=== PATIENT | female | born 1980 | race American Indian/Alaskan Native ===

== ENCOUNTER 2016-10-29 10:14 | Emergency (ER) | payer SELFPAY ==
[2016-10-29 12:17] VITALS: BP 140/81
--- NOTE | 2016-10-29 14:24 | Emergency Department Report ---
- General Chief complaint: Pain General Stated complaint: BOIL LOWER BACK Time Seen by Provider: 10/29/16 14:10 Source: patient Mode of arrival: Ambulatory Limitations: No Limitations - Related Data Previous Rx's Medication Instructions Recorded Last Taken Type ALBUTEROL NEB's [Proventil 0.083% 2.5 mg IH TID PRN #1 box 04/22/14 10/14/15 Rx NEBS] Metoclopramide [Reglan] 10 mg PO AC #90 tablet 10/16/15 10/20/15 Rx Ondansetron [Zofran ODT TAB] 8 mg PO Q8HR #20 tab.rapdis 10/23/15 1 Day Ago Rx 8 Metoclopramide [Reglan] 10 mg PO TID #90 tab 10/25/15 Unknown Rx Ondansetron [Zofran ODT TAB] 8 mg PO Q8HR #30 tab.rapdis 10/25/15 Unknown Rx ALBUTEROL Inhaler [ProAir HFA 2 puff IH QID PRN #1 dispenser 05/31/16 Unknown Rx Inhaler] Cetirizine HCl [ZyrTEC] 10 mg PO DAILY #20 capsule 05/31/16 Unknown Rx predniSONE [Deltasone] 20 mg PO QDAY #20 tablet 05/31/16 Unknown Rx Cephalexin [Keflex] 500 mg PO Q12HR #40 cap 10/29/16 Unknown Rx Sulfamethoxazole/Trimethoprim 1 each PO BID #20 tablet 10/29/16 Unknown Rx [Bactrim DS TAB] Allergies Allergy/AdvReac Type Severity Reaction Status Date / Time ibuprofen [From Motrin] Allergy Swelling Verified 10/24/15 19:25 prochlorperazine edisylate Allergy Swelling Verified 10/15/15 12:44 [From Compazine] prochlorperazine maleate Allergy Swelling Verified 10/15/15 12:44 [From Compazine] Abscess Boil HPI - HPI Chief Complaint: Pain General Stated Complaint: BOIL LOWER BACK Time Seen by Provider: 10/29/16 14:10 Home Medications: Previous Rx's Medication Instructions Recorded Last Taken Type ALBUTEROL NEB's [Proventil 0.083% 2.5 mg IH TID PRN #1 box 04/22/14 10/14/15 Rx NEBS] Metoclopramide [Reglan] 10 mg PO AC #90 tablet 10/16/15 10/20/15 Rx Ondansetron [Zofran ODT TAB] 8 mg PO Q8HR #20 tab.rapdis 10/23/15 1 Day Ago Rx 8 Metoclopramide [Reglan] 10 mg PO TID #90 tab 10/25/15 Unknown Rx Ondansetron [Zofran ODT TAB] 8 mg PO Q8HR #30 tab.rapdis 10/25/15 Unknown Rx ALBUTEROL Inhaler [ProAir HFA 2 puff IH QID PRN #1 dispenser 05/31/16 Unknown Rx Inhaler] Cetirizine HCl [ZyrTEC] 10 mg PO DAILY #20 capsule 05/31/16 Unknown Rx predniSONE [Deltasone] 20 mg PO QDAY #20 tablet 05/31/16 Unknown Rx Cephalexin [Keflex] 500 mg PO Q12HR #40 cap 10/29/16 Unknown Rx Sulfamethoxazole/Trimethoprim 1 each PO BID #20 tablet 10/29/16 Unknown Rx [Bactrim DS TAB] Allergies/Adverse Reactions: Allergies Allergy/AdvReac Type Severity Reaction Status Date / Time ibuprofen [From Motrin] Allergy Swelling Verified 10/24/15 19:25 prochlorperazine edisylate Allergy Swelling Verified 10/15/15 12:44 [From Compazine] prochlorperazine maleate Allergy Swelling Verified 10/15/15 12:44 [From Compazine] ED Review of Systems ROS: Stated complaint: BOIL LOWER BACK Other details as noted in HPI ED Past Medical Hx - Past Medical History Hx Hypertension: No Hx Heart Attack/AMI: No Hx Congestive Heart Failure: No Hx Diabetes: No Hx Deep Vein Thrombosis: No Hx Pulmonary Embolism: No Hx Liver Disease: No Hx Renal Disease: No Hx Sickle Cell Disease: No Hx Arthritis: No Hx Headaches / Migraines: No Hx Seizures: No Hx Kidney Stones: No Hx Asthma: Yes Hx COPD: No Hx Tuberculosis: No Hx Dementia: No Hx HIV: No Additional medical history: - Surgical History Past Surgical History?: No Hx Coronary Stent: No Hx Open Heart Surgery: No Hx Pacemaker: No Hx Internal Defibrillator: No Hx Cholecystectomy: No Hx Appendectomy: No Hx Breast Surgery: No Additional Surgical History: D&C - Social History Smoking Status: Never Smoker - Medications Home Medications: Home Medications Medication Instructions Recorded Confirmed Last Taken Type ALBUTEROL NEB's [Proventil 0.083% 2.5 mg IH TID PRN #1 box 04/22/14 10/24/15 Rx NEBS] Metoclopramide [Reglan] 10 mg PO AC #90 tablet 10/16/15 10/24/15 10/20/15 Rx Ondansetron [Zofran ODT TAB] 8 mg PO Q8HR #20 tab.rapdis 10/23/15 10/24/15 1 Day Ago Rx 8 Metoclopramide [Reglan] 10 mg PO TID #90 tab 10/25/15 Unknown Rx Ondansetron [Zofran ODT TAB] 8 mg PO Q8HR #30 tab.rapdis 10/25/15 Unknown Rx ALBUTEROL Inhaler [ProAir HFA 2 puff IH QID PRN #1 dispenser 05/31/16 Unknown Rx Inhaler] Cetirizine HCl [ZyrTEC] 10 mg PO DAILY #20 capsule 05/31/16 Unknown Rx predniSONE [Deltasone] 20 mg PO QDAY #20 tablet 05/31/16 Unknown Rx Cephalexin [Keflex] 500 mg PO Q12HR #40 cap 10/29/16 Unknown Rx Sulfamethoxazole/Trimethoprim 1 each PO BID #20 tablet 10/29/16 Unknown Rx [Bactrim DS TAB] ED Physical Exam - General Limitations: No Limitations General appearance: alert, in no apparent distress - Head Head exam: Present: atraumatic, normocephalic - Eye Eye exam: Present: normal appearance - ENT ENT exam: Present: mucous membranes moist - Neck Neck exam: Present: normal inspection - Respiratory Respiratory exam: Present: normal lung sounds bilaterally. Absent: respiratory distress - Cardiovascular Cardiovascular Exam: Present: regular rate, normal rhythm. Absent: systolic murmur, diastolic murmur, rubs, gallop - GI/Abdominal GI/Abdominal exam: Present: soft, normal bowel sounds - Extremities Exam Extremities exam: Present: normal inspection - Back Exam Back exam: Present: normal inspection - Neurological Exam Neurological exam: Present: alert, oriented X3 - Psychiatric Psychiatric exam: Present: normal affect, normal mood - Skin Skin exam: Present: warm, dry, intact, other (2 cm diameter indurated cellulitic lesion on right side of lower back no evidence for abscess noted. No lymphangitis or lymphadenopathy noted.). Absent: rash ED Course Vital Signs 10/29/16 12:12 Temperature 98.1 F Pulse Rate 78 Respiratory 16 Rate Blood Pressure 140/81 O2 Sat by Pulse 100 Oximetry Critical care attestation.: If time is entered above; I have spent that time in minutes in the direct care of this critically ill patient, excluding procedure time. ED Disposition Clinical Impression: Cellulitis Disposition: DISCHARGED TO HOME OR SELFCARE Is pt being admited?: No Condition: Stable Instructions: Cellulitis (ED) Prescriptions: Cephalexin [Keflex] 500 mg PO Q12HR #40 cap Sulfamethoxazole/Trimethoprim [Bactrim DS TAB] 1 each PO BID #20 tablet Referrals: PRIMARY CARE, [Primary Care Provider] - 3-5 Days
[2016-10-29] MEDS ORDERED: BOOSTRIX IM ONE (14:43)
== END 2016-10-29 14:53 | disposition home or self-care (01) ==
LOC: ED 10:14
DX: L03.312 Cellulitis of back [any part except buttock and flank] (principal); Z88.8 Allergy status to other drugs, medicaments and biological substances
CPT/HCPCS: 90471; 90715

== ENCOUNTER 2016-11-02 07:22 | Emergency (ER) | payer SELFPAY ==
[2016-11-02 07:45] VITALS: BP 130/86
[2016-11-02] MEDS ORDERED: NORCO 5/325 PO ONE (08:17)
[2016-11-02] MEDS ORDERED: NACL 0.9% IR ONE (08:18)
[2016-11-02] MEDS ORDERED: XYLOCAINE 1% 20 mL INFILTRATI ONE (08:18)
--- NOTE | 2016-11-02 08:19 | Emergency Department Report ---
ED General Adult HPI - General Chief complaint: Animal Bite Stated complaint: INSECT BITE Time Seen by Provider: 11/02/16 08:13 Source: patient Mode of arrival: Ambulatory Limitations: No Limitations - History of Present Illness Initial comments: PT states she was treated for an infected spider bite on 10-29-16. PT states she was given antibiotics but the pain has increased and she has noticed drainage. PT states she was not given anything for pain. MD Complaint: abscess Onset/Timin -: Gradual, days(s) (drainage noted for 1 day ) Location: back Severity scale (0 -10): 9 Quality: constant Consistency: constant Associated Symptoms: denies: fever/chills, nausea/vomiting - Related Data Previous Rx's Medication Instructions Recorded Last Taken Type ALBUTEROL NEB's [Proventil 0.083% 2.5 mg IH TID PRN #1 box 04/22/14 10/14/15 Rx NEBS] Metoclopramide [Reglan] 10 mg PO AC #90 tablet 10/16/15 10/20/15 Rx Ondansetron [Zofran ODT TAB] 8 mg PO Q8HR #20 tab.rapdis 10/23/15 1 Day Ago Rx 8 Metoclopramide [Reglan] 10 mg PO TID #90 tab 10/25/15 Unknown Rx Ondansetron [Zofran ODT TAB] 8 mg PO Q8HR #30 tab.rapdis 10/25/15 Unknown Rx ALBUTEROL Inhaler [ProAir HFA 2 puff IH QID PRN #1 dispenser 05/31/16 Unknown Rx Inhaler] Cetirizine HCl [ZyrTEC] 10 mg PO DAILY #20 capsule 05/31/16 Unknown Rx predniSONE [Deltasone] 20 mg PO QDAY #20 tablet 05/31/16 Unknown Rx Cephalexin [Keflex] 500 mg PO Q12HR #40 cap 10/29/16 Unknown Rx Sulfamethoxazole/Trimethoprim 1 each PO BID #20 tablet 10/29/16 Unknown Rx [Bactrim DS TAB] Allergies Allergy/AdvReac Type Severity Reaction Status Date / Time ibuprofen [From Motrin] Allergy Swelling Verified 11/02/16 07:39 prochlorperazine edisylate Allergy Swelling Verified 11/02/16 07:39 [From Compazine] prochlorperazine maleate Allergy Swelling Verified 11/02/16 07:39 [From Compazine] ED Review of Systems ROS: Stated complaint: INSECT BITE Other details as noted in HPI Comment: All other systems reviewed and negative Constitutional: denies: fever Gastrointestinal: other (pt states she is tolerating antibiotics ). denies: abdominal pain, nausea, vomiting Musculoskeletal: back pain Skin: change in color ED Past Medical Hx - Past Medical History Hx Hypertension: No Hx Heart Attack/AMI: No Hx Congestive Heart Failure: No Hx Diabetes: No Hx Deep Vein Thrombosis: No Hx Pulmonary Embolism: No Hx Liver Disease: No Hx Renal Disease: No Hx Sickle Cell Disease: No Hx Arthritis: No Hx Headaches / Migraines: No Hx Seizures: No Hx Kidney Stones: No Hx Asthma: Yes Hx COPD: No Hx Tuberculosis: No Hx Dementia: No Hx HIV: No Additional medical history: - Surgical History Hx Coronary Stent: No Hx Open Heart Surgery: No Hx Pacemaker: No Hx Internal Defibrillator: No Hx Cholecystectomy: No Hx Appendectomy: No Hx Breast Surgery: No Additional Surgical History: D&C - Social History Smoking Status: Never Smoker Substance Use Type: None - Medications Home Medications: Home Medications Medication Instructions Recorded Confirmed Last Taken Type ALBUTEROL NEB's [Proventil 0.083% 2.5 mg IH TID PRN #1 box 04/22/14 10/24/15 Rx NEBS] Metoclopramide [Reglan] 10 mg PO AC #90 tablet 10/16/15 10/24/15 10/20/15 Rx Ondansetron [Zofran ODT TAB] 8 mg PO Q8HR #20 tab.rapdis 10/23/15 10/24/15 1 Day Ago Rx 8 Metoclopramide [Reglan] 10 mg PO TID #90 tab 10/25/15 Unknown Rx Ondansetron [Zofran ODT TAB] 8 mg PO Q8HR #30 tab.rapdis 10/25/15 Unknown Rx ALBUTEROL Inhaler [ProAir HFA 2 puff IH QID PRN #1 dispenser 05/31/16 Unknown Rx Inhaler] Cetirizine HCl [ZyrTEC] 10 mg PO DAILY #20 capsule 05/31/16 Unknown Rx predniSONE [Deltasone] 20 mg PO QDAY #20 tablet 05/31/16 Unknown Rx Cephalexin [Keflex] 500 mg PO Q12HR #40 cap 10/29/16 Unknown Rx Sulfamethoxazole/Trimethoprim 1 each PO BID #20 tablet 10/29/16 Unknown Rx [Bactrim DS TAB] ED Physical Exam - General Limitations: No Limitations General appearance: alert, in no apparent distress - Head Head exam: Present: atraumatic, normocephalic - Eye Eye exam: Present: normal appearance. Absent: conjunctival injection - Neck Neck exam: Present: normal inspection, full ROM - Extremities Exam Extremities exam: Present: normal inspection, full ROM - Back Exam Back exam: Present: tenderness (to abscess and cellulitis on R lower back. erythema does not extend past marked boarders. ). Absent: normal inspection - Neurological Exam Neurological exam: Present: alert, oriented X3 - Psychiatric Psychiatric exam: Present: normal affect, normal mood - Skin Skin exam: Present: warm, dry, erythema ED Course Vital Signs 11/02/16 11/02/16 07:35 08:48 Temperature 98.6 F Pulse Rate 87 Respiratory 18 18 Rate Blood Pressure 130/86 O2 Sat by Pulse 100 Oximetry - Reevaluation(s) Reevaluation #1: 11/02/16 08:19 PT gave verbal consent for I and D Reevaluation #2: 11/02/16 09:36 PT reports decreased pain after I and D - I & D Right Lower Back Type of Procedure: Simple Site: R lower back Blade Size: 11 I & D Procedure: betadine prep, sterile drapes applied, gauze wick placed Progress: skin cleansed with betadine. 6mls 1% lidocaine used. 11 blade. moderate amount of purulent drainage. loculations broken up with hemostats. site irrigated with ns. 1/4 inch iodoform packing placed. pt tolerated the procedure well. ED Medical Decision Making - Differential Diagnosis cellulitis, abscess Critical care attestation.: If time is entered above; I have spent that time in minutes in the direct care of this critically ill patient, excluding procedure time. ED Disposition Clinical Impression: Abscess Disposition: DISCHARGED TO HOME OR SELFCARE Is pt being admited?: No Does the pt Need Aspirin: No Condition: Stable Instructions: Abscess (ED) Additional Instructions: Continue your antibiotics No driving or ETOH with Tylenol #3 Continue warm compresses Wash with OTC Hibiclens return in 2 days for packing removal. Referrals: PRIMARY CARE, [Primary Care Provider] - 3-5 Days Time of Disposition: 09:38
== END 2016-11-02 09:45 | disposition home or self-care (01) ==
LOC: ED 07:22
DX: L02.212 Cutaneous abscess of back [any part, except buttock and flank] (principal); J45.909 Unspecified asthma, uncomplicated; Z88.6 Allergy status to analgesic agent

== ENCOUNTER 2017-08-03 08:33 | Emergency (ER) | payer SELFPAY ==
[2017-08-03 08:45] VITALS: BP 126/83
--- NOTE | 2017-08-03 11:28 | Emergency Department Report ---
[place] [facility] Chief Complaint: Eye Problems Stated Complaint: LEFT EYE PAIN Time Seen by Provider: 08/03/17 11:23 Duration: 3 Days Severity: moderate Symptoms: Yes Eye Itching, Yes Eye Redness, Yes Eye Pain, Yes Mucous Drainage, Yes Purulent Drainage, No Blurred Vision, No Preceding URI, No H/O Allergic Rhinitis, No Contact Lens Use, No Trauma, No Fever, No Headache ED Review of Systems ROS: Stated complaint: LEFT EYE PAIN Other details as noted in HPI Constitutional: denies: chills, fever Eyes: eye pain, eye discharge. denies: vision change ENT: denies: ear pain, throat pain Respiratory: denies: cough, shortness of breath, wheezing Cardiovascular: denies: chest pain, palpitations Endocrine: no symptoms reported Gastrointestinal: denies: abdominal pain, nausea, diarrhea Genitourinary: denies: urgency, dysuria, discharge Musculoskeletal: denies: back pain, joint swelling, arthralgia Skin: denies: rash, lesions Neurological: denies: headache, weakness, paresthesias Psychiatric: denies: anxiety, depression Hematological/Lymphatic: denies: easy bleeding, easy bruising ED Past Medical Hx - Past Medical History Hx Hypertension: No Hx Heart Attack/AMI: No Hx Congestive Heart Failure: No Hx Diabetes: No Hx Deep Vein Thrombosis: No Hx Pulmonary Embolism: No Hx Liver Disease: No Hx Renal Disease: No Hx Sickle Cell Disease: No Hx Arthritis: No Hx Headaches / Migraines: No Hx Seizures: No Hx Kidney Stones: No Hx Asthma: Yes Hx COPD: No Hx Tuberculosis: No Hx Dementia: No Hx HIV: No Additional medical history: - Surgical History Hx Coronary Stent: No Hx Open Heart Surgery: No Hx Pacemaker: No Hx Internal Defibrillator: No Hx Cholecystectomy: No Hx Appendectomy: No Hx Breast Surgery: No Additional Surgical History: D&C - Social History Smoking Status: Never Smoker Substance Use Type: Alcohol - Medications Home Medications: Home Medications Medication Instructions Recorded Confirmed Last Taken Type ALBUTEROL NEB's [Proventil 0.083% 2.5 mg IH TID PRN #1 box 04/22/14 10/24/15 Rx NEBS] Metoclopramide [Reglan] 10 mg PO AC #90 tablet 10/16/15 10/24/15 10/20/15 Rx Ondansetron [Zofran ODT TAB] 8 mg PO Q8HR #20 tab.rapdis 10/23/15 10/24/15 1 Day Ago Rx ~10/23/15 8 Metoclopramide [Reglan] 10 mg PO TID #90 tab 10/25/15 Unknown Rx Ondansetron [Zofran ODT TAB] 8 mg PO Q8HR #30 tab.rapdis 10/25/15 Unknown Rx ALBUTEROL Inhaler [ProAir HFA 2 puff IH QID PRN #1 dispenser 05/31/16 Unknown Rx Inhaler] Cetirizine HCl [ZyrTEC] 10 mg PO DAILY #20 capsule 05/31/16 Unknown Rx predniSONE [Deltasone] 20 mg PO QDAY #20 tablet 05/31/16 Unknown Rx Cephalexin [Keflex] 500 mg PO Q12HR #40 cap 10/29/16 Unknown Rx Sulfamethoxazole/Trimethoprim 1 each PO BID #20 tablet 10/29/16 Unknown Rx [Bactrim DS TAB] Acetaminophen/Codeine [Tylenol #3] 1 tab PO Q6H PRN #12 tab 11/02/16 Unknown Rx Cetirizine HCl [Zyrtec] 10 mg PO DAILY #30 tablet 08/03/17 Unknown Rx Polymyxin B Sulf/Trimethoprim 1 ml OP QID #1 bottle 08/03/17 Unknown Rx [Polytrim Eye Drops] [place] [place] [facility] Exam - Exam General: Vital signs noted. No distress. Alert and acting appropriately. Eye Exam: Left Injection, Left Mucous Discharge, Right Purulent Discharge, Both EOMI, Neither Chemosis, Neither Abnormal Pupil, Neither Eye Foreign Body, Neither Lid Foreign Body, Neither Corneal Edema, Neither Photophobia HEENT: No Nasal Congestion, No Pharyngeal Erythema Remainder of HEENT: Normal Lungs: Yes Clear Lung Sounds, Yes Good Air Exchange, No Wheezes, No Stridor, No Cough, No Nasal Flaring, No Retractions, No Use of Accessory Muscles ED Course Vital Signs 08/03/17 08:41 Temperature 98.4 F Pulse Rate 89 Blood Pressure 126/83 O2 Sat by Pulse 100 Oximetry ED Medical Decision Making - Medical Decision Making this is conjunctivitis , pinkeye, no eye trauma no change in vision eomi perrla cunjunctivae erythema and yellow green discharge will tx with polytrim eyedrops and zyrtec pt will follow up with ophthalmology Dr. Escobar in 2-3 days, given strict instructions to return of increased symptoms pt verbalized agreement and under standing of same. Critical care attestation.: If time is entered above; I have spent that time in minutes in the direct care of this critically ill patient, excluding procedure time. ED Disposition Clinical Impression: Conjunctivitis Qualifiers: Conjunctivitis type: acute Acute conjunctivitis type: unspecified Laterality: left Qualified Code(s): H10.32 - Unspecified acute conjunctivitis, left eye Disposition: DC- TO HOME OR SELFCARE Is pt being admited?: No Does the pt Need Aspirin: No Condition: Good Instructions: Conjunctivitis (ED) Prescriptions: Cetirizine HCl [Zyrtec] 10 mg PO DAILY #30 tablet Polymyxin B Sulf/Trimethoprim [Polytrim Eye Drops] 1 ml OP QID #1 bottle Referrals: CHANG ESCOBAR MD [Staff Physician] - 3-5 Days Forms: Work/School Release Form(ED) Time of Disposition: 11:31
== END 2017-08-03 12:00 | disposition home or self-care (01) ==
LOC: ED 08:33
DX: H10.32 Unspecified acute conjunctivitis, left eye (principal)
CPT/HCPCS: 99282

== ENCOUNTER 2018-03-22 12:58 | Emergency (ER) | payer SELFPAY ==
[2018-03-22 13:08] VITALS: BP 114/80
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
[2018-03-22] MEDS ORDERED: NORCO 5/325 PO ONE (16:37)
== END 2018-03-22 17:20 | disposition home or self-care (01) ==
LOC: ED 12:58
DX: S01.501A Unspecified open wound of lip, initial encounter (principal); G44.209 Tension-type headache, unspecified, not intractable; J45.909 Unspecified asthma, uncomplicated; Y04.1XXA Assault by human bite, initial encounter; Y93.89 Activity, other specified; Y92.89 Other specified places as the place of occurrence of the external cause; Y99.8 Other external cause status
CPT/HCPCS: 99282

== ENCOUNTER 2020-01-08 19:02 | Emergency (ER) | payer SELFPAY | END 2020-01-08 19:22 | disposition left against medical advice (07) | LOC: ED 19:02 | DX: Z48.01 Encounter for change or removal of surgical wound dressing (principal); Z53.21 Procedure and treatment not carried out due to patient leaving prior to being seen by health care provider ==